=== PATIENT | female | born 1955 | race Caucasian/White ===

== ENCOUNTER 2020-06-24 08:57 | Day surgery (SDC) | payer OTHER ==
[~2020-06-24] VITALS: Ht 170.2 cm; Wt 84.4 kg
[~2020-06-24 08:57] MED LIST: AMBIEN 5MG TABLE5 MG PO; CALCIUM 600 PLU1 TAB PO; NORCO 325 MG-7.1 TAB PO; PROTONIX 40MG T40 MG PO; ZESTRIL40 MG PO
[2020-06-24 09:57] VITALS: BP 152/91; PULSE 60; TEMP 98.2
[2020-06-24 12:10] VITALS: BP 162/93; PULSE 68; TEMP 97.8
--- NOTE | 2020-06-24 12:10 | NUR ---
Patient arrives to [facility] via cart, accompanied by [facility] RN Linda Irizarry. Bedside report is received. Patient is alert and oriented. She ambulates to the chair in her room with standby assist and steady gait. Monitoring is applied -VSS and WNL on room air. Denies pain, nausea, or other complaint. She is offered and receives juice to drink. Will continue to monitor.
[2020-06-24 12:25] VITALS: BP 152/89; PULSE 55
--- NOTE | 2020-06-24 12:30 | NUR ---
Dr. Croft comes to the bedside and speaks with the patient at this time.
[2020-06-24 12:40] VITALS: BP 165/89; PULSE 60
--- NOTE | 2020-06-24 12:40 | NUR ---
VSS on room air. Patient is going to take her BP medication when she gets home, as she has not taken it yet today. Tolerating PO well.
--- NOTE | 2020-06-24 12:50 | NUR ---
Patient has met discharge criteria. Discharge instructions are discussed. She denies any questions and verbalizes understanding. PIV is removed with catheter intact and hemostasis achieved. She changes to her clothing independently. She is escorted to the exit via wheelchair by staff and discharged to home with ride in private car, driven by Giovani at 1250.
== END 2020-06-24 12:50 | disposition home or self-care (01) ==
LOC: SDCO 08:57
DX: K21.9 Gastro-esophageal reflux disease without esophagitis (principal); K22.2 Esophageal obstruction; K44.9 Diaphragmatic hernia without obstruction or gangrene; K22.4 Dyskinesia of esophagus; I10 Essential (primary) hypertension; Z87.891 Personal history of nicotine dependence; Z79.899 Other long term (current) drug therapy
CPT/HCPCS: C1726; J2704; J3010; J7030